=== PATIENT | male | born 1950 | race Caucasian/White ===

== ENCOUNTER → 2024-11-08 09:59 | Outpatient (CLI) | payer OTHER, SELFPAY ==
--- NOTE | 2024-11-08 10:02 | DI.ECHO.S_ITS ---
[facility] : : [address] : : [place] : : [id number] : : Phone: [phone] Echocardiogram Report + + :Name: MONISHA YI Study Date: 11/08/2024 Height: 70 in : :Hospital ReadingLocation: Weight: 205 lb : : Gender: Male BSA: 2.1 m2 : :: 1950 Age: 74 yrs BP: 128/81 mmHg: :Reason For Study: HEART DISEASE : :Ordering Physician: KACY, : :[place] Performed By: Honorio Phillips : :Referring: [id number] : + + Interpretation Summary The ejection fraction is estimated to be 50-55%. There are no obvious focal wall motion abnormalities noted but poor endocardial definition reduces the sensitivity for the detection of such. There is mild mitral annular calcification. There is trace mitral regurgitation. The aortic valve is mildly calcified. The ascending aorta is mildly enlarged. Procedure: A two-dimensional transthoracic echocardiogram with color flow and Doppler was performed. The study quality was technically difficult. There is no prior echocardiogram noted for this patient. The patient was in normal sinus rhythm during the exam. Left Ventricle: The left ventricle is normal in size. There is normal left ventricular wall thickness. There is no ventricular septal defect visualized. The ejection fraction is estimated to be 50-55%. There are no obvious focal wall motion abnormalities noted but poor endocardial definition reduces the sensitivity for the detection of such. Diastolic parameters suggest probable normal left ventricular diastolic function and normal filling pressures. Right Ventricle: The right ventricle is normal in size and function. Atria: The left atrium is mildly dilated. The right atrium is mildly dilated. There is no Doppler evidence for an interatrial shunt. Mitral Valve: There is mild mitral annular calcification. The mitral valve leaflets appear normal. There is no evidence of stenosis, fluttering, or prolapse. There is trace mitral regurgitation. Aortic Valve: The aortic valve is trileaflet. The aortic valve is mildly calcified. The aortic valve opens well. No aortic regurgitation is present. Tricuspid Valve: The tricuspid valve is not well visualized. There is trace tricuspid regurgitation. Pulmonic Valve: The pulmonic valve is not well visualized. There is no pulmonic valvular regurgitation. Great Vessels: The aortic root is normal size. The ascending aorta is mildly enlarged. The pulmonary artery is not well visualized, but is probably normal size. The IVC is of normal diameter and collapses greater than 50% with a sniff. This suggests a low right atrial pressure of 3 mm Hg. Pericardium/ Pleura There is no pericardial effusion. There is no pleural effusion. MMode/2D Measurements & Calculations LVIDd: 4.7 cm LVOT diam: 2.1 cm LVIDs: 3.5 cm Ao root diam: 3.5 cm FS: 25.8 % asc Aorta Diam: 3.7 cm EPSS: 0.97 cm IVSd: 0.98 cm LVPWd: 1.0 cm LV griggs. diameter/BSA (cm/m^2): 2.2 LV sys. diameter/BSA (cm/m^2): 1.7 LA A2 area: 22.5 cm2 RA long axis: 4.9 cm LA A4 area: 22.1 cm2 RA area: 17.9 cm2 LA length (vol): 5.6 cm RA vol: 55.1 ml LA vol: 75.2 ml RA : 26.1 ml/m2 LA vol index: 35.7 ml/m2 IVC diam: 1.6 cm RVD1 (basal): 3.4 cm RVD2 (mid): 2.8 cm TAPSE: 2.6 cm Doppler Measurements & Calculations Ao V2 max: 137.4 cm/sec LVOT Max Alberto: 86.7 cm/sec Ao V2 mean: 99.7 cm/sec LV V1 max P.0 mmHg Ao max P.6 mmHg LV V1 VTI: 24.4 cm Ao mean P.3 mmHg JOHN(I,D): 2.5 cm2 Ao V2 VTI: 33.8 cm JOHN(V,D): 2.2 cm2 sev ratio: 0.72 JOHN indexed to BSA (cm^2/m^2): 1.2 MV E max alberto: 87.2 cm/sec TR max alberto: 285.6 cm/sec MV A max alberto: 77.7 cm/sec TR max P.6 mmHg MV E/A: 1.1 PA V2 max: 78.8 cm/sec Med Peak E' Alberto: 5.4 cm/sec PA V2 mean: 57.4 cm/sec E/E' med: 16.1 PA mean P.4 mmHg Lat Peak E' Alberto: 7.0 cm/sec PA pr(Accel): 37.9 mmHg E/E' lat: 12.4 E/e' average: 14.3 MV dec time: 0.14 sec SV(LVOT): 84.8 ml Reading Physician:12:44 PM
== END ==
PROVIDERS: Referring Provider Physician Assistant; Visit Provider Physician Assistant
DX: I34.81 Nonrheumatic mitral (valve) annulus calcification (principal); I51.9 Heart disease, unspecified; I77.89 Other specified disorders of arteries and arterioles
CPT/HCPCS: 93306